=== PATIENT | female | born 1990 | race Caucasian/White ===

== ENCOUNTER 2017-05-05 23:38 | Emergency (ER) | payer MEDICAID, OTHER ==
[~2017-05-05] VITALS: Ht 165.1 cm; Wt 101.9 kg
[2017-05-06 00:32] VITALS: Ht 165.1 cm; Wt 101.9 kg
[2017-05-06] MEDS ORDERED: BEN50 PO (03:56)
[2017-05-06] MEDS ORDERED: TRIA15CR55 TOP (03:56)
--- NOTE | 2017-05-06 04:34 | ERD ---
ER Documentation Chief Complaint Chief Complaint general rash x2 days, worse today. Denies cough, fever HPI 26-year-old female presents here to emergency department for complaints of rash over the body and itching that started yesterday, worse today. Patient does not have any lip swelling, tongue swelling or stridor. Patient does not have any shortness of breath or wheezing. She does not have any family members with the same type of rash. Patient did not take medications to help with symptoms ROS All systems reviewed and are negative except as per history of present illness. Medications Home Meds Active Scripts Diphenhydramine Hcl* (Benadryl*) 50 Mg Cap, 50 MG PO Q6H Y for ITCHING/RASH, # 30 CAP Prov:DORIS HUERTA NP 05/06/17 Triamcinolone Acetonide (Triamcinolone Acetonide) 0.1% - 15 Gm Cream.gm., 1 APPLIC TOP BID, #1 TUB Prov:DORIS HUERTA NP 05/06/17 Allergies Allergies: Coded Allergies: No Known Allergy (Verified , 05/06/17) PMhx/Soc History of Surgery: No Anesthesia Reaction: No Hx Neurological Disorder: No Hx Respiratory Disorders: No Hx Cardiac Disorders: No Hx Psychiatric Problems: No Hx Miscellaneous Medical Probl: Yes (LIVER MASS) Hx Alcohol Use: No Hx Substance Use: No Hx Tobacco Use: No Smoking Status: Never smoker FmHx Family History: No coronary disease, No diabetes, No other Physical Exam Vitals Vital Signs Date Time Temp Pulse Resp B/P Pulse Ox O2 Delivery O2 Flow Rate FiO2 05/06/17 00:32 97.8 67 18 108/59 100 Physical Exam GENERAL: The patient is well developed and appropriate for usual state of health, in no apparent distress. CHEST: Clear to auscultation bilaterally. There are no rales, wheezes or rhonchi. HEART: Regular rate and rhythm. No murmurs, clicks, rubs or gallops. No S3 or S4. ABDOMEN: Soft, nontender and nondistended. Good bowel sounds. No rebound or guarding. No gross peritonitis. No gross organomegaly or masses. No Grant sign or McBurney point tenderness. BACK: No midline or flank tenderness. EXTREMITIES: Equal pulses bilaterally. There is no peripheral clubbing, cyanosis or edema. No focal swelling or erythema. Full range of motion. Grossly neurovascularly intact. NEURO: Alert and oriented. Cranial nerves 2-12 intact. Motor strength in all 4 extremities with 5/5 strength. Sensation grossly intact. Normal speech and gait. SKIN: Maculopapular rash noted all over the body. There is no apparent rash or petechia. The skin is warm and dry. HEMATOLOGIC AND LYMPHATIC: There is no evidence of excessive bruising or lymphedema. No gross cervical, axillary, or inguinal lymphadenopathy. Procedures/MDM Medical decision making: Patient's rash over the body and itching nonspecific at this time possible dermatitis. No suspicion for allergic reaction, no symptoms of any respiratory distress. No symptoms of an anaphylactic shock. No angioedema noted. No symptoms of any contagious rash. Prescription was given for Benadryl, triamcinolone cream, is advised to follow-up with primary care doctor in 2-3 days reevaluation of symptoms, see patient support specialist if symptoms does not improve. Patient was advised to return to emergency department for any acute emergent worsening conditions. Disposition: Home. Stable Departure Diagnosis: Primary Impression: Rash Condition: Stable Patient Instructions: Self-Care for Skin Rashes DORIS HUERTA NP May 06, 2017 04:34
== END 2017-05-06 04:26 | disposition home or self-care (01) ==
LOC: FTE 23:38
DX: R21 Rash and other nonspecific skin eruption (principal)
CPT/HCPCS: 99283